=== PATIENT | female | born 1980 | race Caucasian/White ===

== ENCOUNTER 2018-12-28 22:39 | Observation (INO) | payer MEDICAID, SELFPAY ==
[2018-12-28] MEDS ORDERED: Morphine 4 MG/ML VIAL ONE (23:25)
--- NOTE | 2018-12-28 23:36 | RAD ---
PORTABLE CHEST ONE VIEW: 12/28/18 at 11:10 p.m. HISTORY: 38-year-old female for preoperative evaluation for lower abdominal pain. FINDINGS: The heart size is normal. The lungs are expanded without focal areas of consolidation, pneumothorace s, or pleural effusions. IMPRESSION: No acute process. POS: [facility]
[2018-12-28 23:48] LABS: #Eosinphils 0.2 thou/uL (0.0-0.7); #Lymphocytes 1.9 thou/uL (1.20-3.40); #Monocytes 0.7 thou/uL (0.11-0.59); #Neutrophils 7.2 thou/uL (1.40-6.50); %Basophils 0.5 % (0.0-1.0); %Eosinophils 1.7 % (0.0-10.0); %Lymphocytes 19.1 % (21.0-51.0); %Monocytes 6.5 % (0.0-10.0); %Neutrophils 72.3 % (42.0-75.0); Hemoglobin 11.3 g/dL (12.0-16.0); Mean Corpuscular HGB CONC 35.2 g/dL (32.0-36.0); Mean Corpuscular Hemoglobin 31.3 pg (27.0-31.0); Mean Corpuscular Volume 88.9 fL (78.0-98.0); Mean Platelet Volume 8.7 fL (7.4-10.4); Platelet Count 184 thou/uL (130-400); RBC Distribution Width 13.2 % (11.5-14.5); Red Blood Cell (RBC) Count 3.62 mill/uL (4.20-5.40)
[2018-12-28 23:55] LABS: PTT 26.4 SEC (22.9-36.1); Prothrombin Time 13.4 SEC (12.0-14.7)
[2018-12-29 00:08] LABS: ALT (SGPT) 13 U/L (8-55); AST (SGOT) 14 U/L (5-34); Albumin 3.5 g/dL (3.5-5.0); Alkaline Phosphatase 47 U/L (40-150); Anion Gap 11 mmol/L (10-20); BUN (Urea Nitrogen) 15 mg/dL (7.0-18.7); Bilirubin, Total 0.8 mg/dL (0.2-1.2); Calc. Creatinine Clearance 0 mL/min (70-130); Calcium 8.5 mg/dL (7.8-10.44); Carbon Dioxide 23 mmol/L (22-29); Chloride 105 mmol/L (98-107); Estimated GFR-MDRD 78; Globulin 2.4 g/dL (2.4-3.5); Glucose 87 mg/dL (70-105); Lipase 60 U/L (8-78); Potassium 3.6 mmol/L (3.5-5.1); Protein, Total 5.9 g/dL (6.0-8.3); Sodium 135 mmol/L (136-145)
[2018-12-29 02:06] VITALS: BMI 32.1
[2018-12-29] MEDS ORDERED: Morphine 4 MG/ML VIAL SLOW IVP PRN (04:55)
[2018-12-29] MEDS ORDERED: Ondansetron PF 4 MG/2 ML Vial IVP PRN (04:55)
[2018-12-29] MEDS ORDERED: Ondansetron ODT 4 MG TAB SL PRN (04:55)
[2018-12-29] MEDS ORDERED: Piperacillin/Tazobactam 4.5 GM in Sodium Chloride 0.9% 100 ML IVPB SCH (05:00)
[2018-12-29] MEDS ORDERED: D5 1/2 NS w/20 mEq KCL 1,000 ML IV SCH (05:00)
[2018-12-29] MEDS ORDERED: Ibuprofen 600 MG TAB PO PRN (11:51)
[2018-12-29] MEDS ORDERED: Acetaminophen 500 MG TAB PO PRN (11:51)
[2018-12-29] MEDS ORDERED: traMADol HCl 50 MG TAB PO PRN ×2 (11:51)
--- NOTE | 2018-12-29 12:34 | HP ---
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 She had a total abdominal hysterectomy and bilateral salpingo-oophorectomy in August of 2018. She was engaged in sexual relationship last night and experienced acute onset of pelvic pain. She presented to the [facility] within 30 to 40 minutes of this. She had experienced vaginal bleeding. CAT scan of the abdomen and pelvis read by Dr. Archer suggested of dilated appendix and is read out as possible appendicitis. There were inflammatory changes in the pelvis and pelvis fluid. Her white count was 10. ALLERGIES: NONE. SOCIAL HISTORY: Tobacco, one-third pack per day. Alcohol, socially. MEDICATIONS: None routinely. 1. Phentermine. 2. Estradiol. 3. Thyroid replacement. PAST SURGICAL HISTORY: Total abdominal hysterectomy, bilateral salpingo-oophorectomy, and tubal ligation prior to that. PAST MEDICAL HISTORY: Noncontributory. REVIEW OF SYSTEMS: Ten-point noncontributory. FAMILY HISTORY: Noncontributory. PHYSICAL EXAMINATION: VITAL SIGNS: Height 6 feet 2 inches, weight 250 pounds, BMI 32, temperature 98.1, pulse 61, respirations 18, blood pressure 99/62. HEAD, EARS, EYES, NOSE AND THROAT: Unremarkable. LUNGS: Clear to auscultation. CARDIAC: Regular rate and rhythm without murmur or gallop. ABDOMEN: Soft. Tenderness in her lower abdomen, no more so in the right lower quadrant than in the midline, suprapubic and left lower quadrant. Upper abdomen is soft. It is not distended. LABORATORY DATA: White count is 10 and hemoglobin is 11. ASSESSMENT AND PLAN: I have reviewed her CAT scan with radiologist per telephone. They pulled up her CAT scan from [facility] and reviewed it. In their opinion, Dr. Galeano her appendix is not dilated. All the inflammatory changes and a scant amount of free fluid are in the pelvis. I think this is Gynecology related and she does not need an appendectomy. I have explained that to her. Dr. Lai, hospitalist on-call, will see her today. We will plan diet as tolerated and probably discharge home today. Job ID: [id number]
--- NOTE | 2018-12-29 15:58 | PDOC.HHP ---
Hospitalist HPI - History of Present Illness pelvic pain & vaginal bleeding History of Present Illness: 38 yo female referred to microbiology lab technician hospitalist service after eval by general surgery for possible appendicitis. Presented to [facility] shortly after 1700 yesterday with sudden onset coital pelvic pain and vaginal bleeding. Is s/p robotic hysterectomy with BSO 16 Sep 2018 for fibroids & endometriosis. Did well after the surgery without any complications or residual pain. Has been having sex approx once/week for the past several weeks without any problems. During intercourse yesterday afternoon experienced sudden onset severe spurapubic pain , rated 8/10, accompanied by vaginal bleeding & initially accompanied by nausea. Promptly proceeded to the ED where she underwent an abdomen/pelvis CT with contrast & a speculum exam. Vaginal cuff was noted to be intact on speculum exam & CT was concerning for possible appendicitis. Was transferred to [facility] ED for further after d/t availability of microbiology lab technician hospitalist service here. Evaluated here by Dr Galaviz who reviewed the CT images with radiology & on re-evaluation, images were not concerning for appendicitis. Pain has now decreased to 3/10, but is more diffuse, present across the entirety of the lower abdomen. There was some blood on her pad when she woke up this am, otherwise has not noticed any further vaginal bleeding. Hospitalist ROS - Review of Systems Constitutional: denies: fever Gastrointestinal: reports: abdominal pain Hospitalist History - Past Medical History Endocrine: reports: Hypothyroidism - Exam General Appearance: NAD, awake alert Eye: anicteric sclera ENT: normocephalic atraumatic Respiratory: normal chest expansion Hospitalist Results - Labs Result Diagrams: 12/28/18 23:39 12/28/18 23:39 Lab results: WBC 10.0 thou/uL (4.8-10.8) 12/28/18 23:39 Hgb 11.3 g/dL (12.0-16.0) L 12/28/18 23:39 Hct 32.2 % (36.0-47.0) L 12/28/18 23:39 MCV 88.9 fL (78.0-98.0) 12/28/18 23:39 Plt Count 184 thou/uL (130-400) 12/28/18 23:39 Neutrophils % 72.3 % (42.0-75.0) 12/28/18 23:39 Sodium 135 mmol/L (136-145) L 12/28/18 23:39 Potassium 3.6 mmol/L (3.5-5.1) 12/28/18 23:39 Chloride 105 mmol/L (98-107) 12/28/18 23:39 Carbon Dioxide 23 mmol/L (22-29) 12/28/18 23:39 BUN 15 mg/dL (7.0-18.7) 12/28/18 23:39 Creatinine 0.82 mg/dL (0.6-1.1) 12/28/18 23:39 Glucose 87 mg/dL (70-105) 12/28/18 23:39 Calcium 8.5 mg/dL (7.8-10.44) 12/28/18 23:39 Total Bilirubin 0.8 mg/dL (0.2-1.2) 12/28/18 23:39 AST 14 U/L (5-34) 12/28/18 23:39 ALT 13 U/L (8-55) 12/28/18 23:39 Alkaline Phosphatase 47 U/L (40-150) 12/28/18 23:39 Serum Total Protein 5.9 g/dL (6.0-8.3) L 12/28/18 23:39 Albumin 3.5 g/dL (3.5-5.0) 12/28/18 23:39 Lipase 60 U/L (8-78) 12/28/18 23:39 Hospitalist H&P A/P - Problem (1) Pelvic pain Code(s): R10.2 - PELVIC AND PERINEAL PAIN Status: Acute Assessment and Plan: Vaginal cuff noted to be intact on exam. Pt has off from work today & tomorrow. Advised that she may return to work 31 Dec 2018. Will give 800 mg ibuprofen now to attempt better pain control & will reevaluate later this afternoon. As long as she is doing well, may discharge home later today. Advised that until she is completely healed, when having sex, will need to maintain a position such that she is in control of the depth of penetration. Recommended f/u later this week with Dr Cuellar, her regular bilingual secretary. (2) Vaginal bleeding Code(s): N93.9 - ABNORMAL UTERINE AND VAGINAL BLEEDING, UNSPECIFIED Status: Resolved - Plan Plan: Resolved; no further intervention required at this time. Physcial Exam - Physical Exam General Appearance: mild distress (Mild distress during exam, none when resting comfortably prior to exam. ) ENT: hearing grossly normal Pelvic: other (Speculum exam performed. Pt was noticeably uncomfortable during exam. Pt noted to be uncomfortable moving into position for the pelvic exam as well. Vaginal cuff visualized & there were no areas of separation noted. Vaginal cuff explored via digital exam as well & found to be intact. ) Neuro/Psych: other (awake/alert, answers questions appropriately. ) Addendum - Attending - Attending Attestation Date/Time: 12/31/18 [id number] I personally evaluated the patient and discussed the management with [employer] student Howie Foster I agree with the History, Examination, Assessment and Plan documented above with any addition or exceptions noted below. PT is a 38yo female who presented with pain and vaginal bleeding after intercourse at the [facility] and tx to [facility] with concerns for appendicitis. Upon evaluation by Dr Galaviz, general surgeon, she was referred to OBGYN as no evidence on appendicitis present. Pt had a robotic assisted TLH in august and has resumed sexual activity a few weeks ago. On day of presentation pt had acute pelvic pain and alot of bleeding with sex. At the time of our evaluation bleeding had stopped and pain had improved. Vital signs remained wnl. On physical exam vulva and vagina were without any visible lacerations or lesions. VAginal cuff is intact both visibly and by digital palpation. There was a small area that appeared may have been the source of her bleeding on the cuff as is appear petechial and irritated. but no clot or bleeding seen. A/P pelvic pain and vaginal bleeding resolved likely from trauma during intercourse. Pt has been counselled that vaginal length is shortened for a time after surgery. With time and use it should lengthen to a sufficient amount. In the meantime I have reccommended pt be in a position to control penetration. PT has been asked to f/u with her primary microbiology lab technician in 1-2 wks
[2018-12-29] MEDS ORDERED: Ibuprofen 800 MG TAB PO SCH (16:30)
[2018-12-29 20:32] VITALS: BP 97/60; TEMP 98.1
--- NOTE | 2018-12-30 02:43 | DIS ---
DATE OF ADMISSION: 12/28/2018 DATE OF DISCHARGE: 12/29/2018 ADMISSION DIAGNOSES: 1. Suspected appendicitis. 2. Pelvic pain. 3. Vaginal bleeding. DISCHARGE DIAGNOSES: Pelvic pain and vaginal bleeding, resolved. HOSPITAL COURSE: The patient is a 38-year-old female who presented to the [facility] after experiencing acute onset vaginal bleeding and pelvic pain after intercourse. The patient had robotic-assisted laparoscopic hysterectomy in August by Dr. Cuellar. She reports since then she has had sex for the last few weeks, they had not had any problems until today. The patient denies any other medical issues. Per initial evaluation by the outside emergency room, diagnosed her with potential appendicitis as her vaginal cuff was intact and the patient was transferred to [facility], Dr. Galaviz to evaluate. In his evaluation here today in review of the imaging he has concluded that she does not have an appendicitis, and MANAGER OF RECRUITING was consulted given her symptomatology. At the time of my evaluation, the patient again confirmed her etiology of her pain and bleeding. This morning the patient reports that her pain had been improving and that her bleeding had all but resolved. At time of our evaluation, the patient again confirmed these findings. The patient was taken to the [facility] room for evaluation, was confirmed to have an intact cuff with no evidence of bleeding on speculum exam and digital exam. At this point in time, the patient's focus was on pain control. She has been given tramadol and ibuprofen, and has had good pain control. After talking to Dr. Galaviz about our findings and recommendation for discharge, Dr. Galaviz has given his consent. The patient will be discharged home today with 800 mg of ibuprofen, #20, to be taken 3 times a day as needed for pain and tramadol 50 mg to be taken one tablet every 6 hours as needed for pain, #10. She has been given instructions to follow up with Dr. Cuellar in the next week for evaluation and further management. The patient will be discharged home this evening. Job ID: [id number]
[2018-12-30] MEDS ORDERED: Phentermine Hcl 37.5 MG PO SCH (09:00)
[2018-12-30] MEDS ORDERED: Estradiol 1 MG TAB PO SCH (09:00)
== END 2018-12-29 22:17 | disposition home or self-care (01) ==
LOC: ERS 22:39 → SURG B 23:16
PROVIDERS: ADMIT Specialist; ATTEND Specialist
DX: N93.9 Abnormal uterine and vaginal bleeding, unspecified (principal); R10.2 Pelvic and perineal pain; F17.210 Nicotine dependence, cigarettes, uncomplicated; E03.9 Hypothyroidism, unspecified; Z79.899 Other long term (current) drug therapy; Z90.710 Acquired absence of both cervix and uterus; Z90.722 Acquired absence of ovaries, bilateral
CPT/HCPCS: 36415; 71045; 80053; 83690; 85025; 85610; 85730; 93005; 96361; 96365; 96374; 96375; G0378; J2270; J2405; J2543; J3490